=== PATIENT | female | born 1995 | race Hispanic/Latino ===

== ENCOUNTER 2021-04-08 14:36 | Outpatient (CLI) | payer OTHER ==
[2021-04-09 01:36] LABS: SARS-CoV-2 PCR by NAA Not Detected (NotDetected)
== END 2021-04-08 14:37 | disposition home or self-care (01) ==
LOC: CSHLAB 14:36
PROVIDERS: ATTEND Obstetrics & Gynecology
DX: Z20.822 Contact with and (suspected) exposure to COVID-19 (principal)
CPT/HCPCS: 87635; U0003; U0005

== ENCOUNTER 2021-04-11 09:37 | Day surgery (SDC) | payer OTHER ==
[2021-04-11] MEDS ORDERED: Acetaminophen 500 MG TAB PO SCH (11:00)
[2021-04-11] MEDS ORDERED: Iron Sucrose Complex 400 MG in Sodium Chloride 0.9% 250 ML 250 ML IVPB SCH (11:00)
[2021-04-11] MEDS ORDERED: Iron Sucrose Complex 500 MG in Sodium Chloride 0.9% 250 ML 250 ML IVPB SCH (11:30)
== END 2021-04-11 16:00 | disposition home health service (06) ==
LOC: CSHLD/OP 09:37
PROVIDERS: ATTEND Obstetrics & Gynecology
DX: O99.013 Anemia complicating pregnancy, third trimester (principal); D64.9 Anemia, unspecified; Z3A.00 Weeks of gestation of pregnancy not specified
CPT/HCPCS: J1756; J7050

== ENCOUNTER 2025-08-26 02:04 | Emergency (ER) | payer SELFPAY ==
[2025-08-26] MEDS ORDERED: Dexamethasone 4 MG TAB ONE (03:24)
[2025-08-26] MEDS ORDERED: Albuterol 2.5 MG (0.5 mL) NEB ONE (03:29)
== END 2025-08-26 04:30 | disposition home or self-care (01) ==
LOC: CSHERS 02:04
DX: T63.421A Toxic effect of venom of ants, accidental (unintentional), initial encounter (principal); Z55.6 Problems related to health literacy
CPT/HCPCS: J7611; J8540